=== PATIENT | male | born 1950 | race Caucasian/White ===

== ENCOUNTER 2020-03-16 16:26 | Emergency (ER) | payer MEDICARE, OTHER ==
[~2020-03-16 16:26] MED LIST: DIOVAN320 MG PO; IBUPROFEN400 MG PO; NORVASC 5 MG TAB5 MG PO
[2020-03-16 17:35] LABS: HEMOGLOBIN 17.3 gm/dl (14.0-17.5); RED BLOOD COUNT 5.74 M/UL (4.20-5.50); WHITE BLOOD COUNT 8.6 K/UL (4.5-11.0)
[2020-03-16 18:24] LABS: BUN/CREATININE RATIO 11 (0-10)
== END 2020-03-16 19:50 | disposition home or self-care (01) ==
LOC: ER1 16:26
PROVIDERS: Family Medicine
DX: E87.6 Hypokalemia (principal); I10 Essential (primary) hypertension; I49.1 Atrial premature depolarization; Z79.899 Other long term (current) drug therapy
CPT/HCPCS: 71045; 80053; 82550; 82553; 83874; 84439; 84443; 84484; 85025; 93005; 99285

== ENCOUNTER → 2020-03-17 | Outpatient (CLI) | payer MEDICARE, OTHER | LOC: HEART 5 10:03 | DX: R00.2 Palpitations (principal) ==